=== PATIENT | female | born 1955 | race Caucasian/White ===

== ENCOUNTER 2018-12-01 09:25 | Emergency (ER) | payer MEDICAID ==
[~2018-12-01] VITALS: Ht 170.2 cm; Wt 59.0 kg
--- NOTE | 2018-12-01 09:58 | NUR ---
Resting in [facility]. NAD. No needs.
[2018-12-01] MEDS ORDERED: metroNIDAZOLE 500 MG TABLET PO ONE (10:30)
[2018-12-01 10:44] LABS: BASOPHILS # (AUTO) 0.01 x10^3/uL (0-0.1); BASOPHILS % (AUTO) 0 % (0-1); EOSINOPHILS # (AUTO) 0.17 x10^3/uL (0-0.4); EOSINOPHILS % (AUTO) 4 % (1-7); LYMPHOCYTES # (AUTO) 0.88 x10^3/uL (1-3.4); LYMPHOCYTES % (AUTO) 20 % (22-44); MD NO; MEAN CORPUSCULAR HEMOGLOBIN 27.3 pg (27.0-34.8); MEAN CORPUSCULAR HGB CONC 32.7 g/dL (32.4-35.8); MEAN CORPUSCULAR VOLUME 83.7 fL (80-100); MEAN PLATELET VOLUME 8.6 fL (7.4-10.4); MONOCYTES # (AUTO) 0.56 x10^3/uL (0.2-0.8); MONOCYTES % (AUTO) 13 % (2-9); NEUTROPHILS % (AUTO) 62 % (42-75); PLATELET COUNT 194 x10^3/uL (130-400); RED BLOOD COUNT 4.88 x10^6/uL (3.82-5.3); RED CELL DISTRIBUTION WIDTH 14.5 % (9.6-15.2)
[2018-12-01 10:47] LABS: ALANINE AMINOTRANSFERASE 22 U/L (12-78); ALBUMIN 3.5 g/dL (3.4-5.0); CALCIUM 8.5 mg/dL (8.5-10.1); CHLORIDE 110 mmol/L (98-107); CREATININE 0.69 mg/dL (0.55-1.02)
[2018-12-01 10:49] LABS: ALKALINE PHOSPHATASE 123 U/L (45-117); BILIRUBIN,TOTAL 0.2 mg/dL (0.2-1.0); TOTAL PROTEIN 7.5 g/dL (6.4-8.2)
[2018-12-01 10:57] LABS: ANION GAP 3 mmol/L (5-15)
[2018-12-01] MEDS ORDERED: metroNIDAZOLE 500 MG TABLET ONE (11:04)
--- NOTE | 2018-12-01 11:08 | NUR ---
[facility] admin. No needs.
[2018-12-01 12:25] VITALS: BP 125/78
--- NOTE | 2018-12-01 12:41 | NUR ---
Patient/Caregiver given discharge instructions and they have confirmed that they understand the instructions. Patient ambulatory with steady gait.
== END 2018-12-01 12:41 | disposition home or self-care (01) ==
LOC: ED 12:29
DX: R19.7 Diarrhea, unspecified (principal); I10 Essential (primary) hypertension
CPT/HCPCS: 36415; 80053; 85025; 99283

== ENCOUNTER 2019-02-02 21:56 | Emergency (ER) | payer MEDICAID ==
[~2019-02-02] VITALS: Ht 170.2 cm; Wt 62.7 kg
[2019-02-02 22:02] VITALS: BP 101/73
[2019-02-02] MEDS ORDERED: SULFAMETH./TRIMETHOPRIM DS 800MG/160MG TABLET ONE (22:42)
[2019-02-02] MEDS ORDERED: CEPHALEXIN 500 MG CAPSULE ONE (22:42)
--- NOTE | 2019-02-02 22:56 | NUR ---
PT MEDICATED PER EMAR. PT RESTING IN ROOM DC RN: Patient/Caregiver given discharge instructions and they have confirmed that they understand the instructions. Patient ambulatory with steady gait.
[2019-02-02] MEDS ORDERED: SULFAMETH./TRIMETHOPRIM DS 800MG/160MG TABLET PO ONE (23:00)
[2019-02-02] MEDS ORDERED: CEPHALEXIN 500 MG CAPSULE PO ONE (23:00)
--- NOTE | 2019-02-03 00:19 | NUR ---
Patient/Caregiver given discharge instructions and they have confirmed that they understand the instructions. Patient ambulatory with steady gait.
== END 2019-02-03 00:20 | disposition home or self-care (01) ==
LOC: ED 22:40
DX: A49.02 Methicillin resistant Staphylococcus aureus infection, unspecified site (principal); B86 Scabies; I10 Essential (primary) hypertension
CPT/HCPCS: 99283

== ENCOUNTER 2019-02-20 19:28 | Emergency (ER) | payer MEDICAID ==
[~2019-02-20] VITALS: Ht 170.2 cm; Wt 58.0 kg
--- NOTE | 2019-02-20 19:35 | NUR ---
pt amb to br and back to room with steady gait.
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
--- NOTE | 2019-02-20 19:56 | NUR ---
XRAY IN ROOM.
[2019-02-20] MEDS ORDERED: DIPHENHYDRAMINE 25 MG CAPSULE ONE (19:58)
[2019-02-20] MEDS ORDERED: DIPHENHYDRAMINE 25 MG CAPSULE PO ONE (20:00)
[2019-02-20] MEDS ORDERED: PERMETHRIN CRM 5%, 60GM TP SCH (20:00)
[2019-02-20] MEDS ORDERED: PERMETHRIN CRM 5%, 60GM ONE (20:03)
--- NOTE | 2019-02-20 20:08 | NUR ---
PT MEDICATED PER EMAR. PT TOLERATED WELL. PT'S AOX4. RESPS EVEN AND UNLABORED.
[2019-02-20] MEDS ORDERED: PERMETHRIN CRM 5%, 60GM TP ONE (20:30)
[2019-02-20] MEDS ORDERED: LORazepam 1MG TABLET ONE (20:44)
--- NOTE | 2019-02-20 20:47 | NUR ---
pt medicated per emar. pt tolerated well. pt's aox4. resps even and unlabored.
[2019-02-20] MEDS ORDERED: LORazepam 1MG TABLET PO ONE (21:00)
[2019-02-20 21:09] VITALS: BP 125/77
--- NOTE | 2019-02-20 21:10 | NUR ---
PT RESTING IN [facility]. PT'S AOX4. RESPS EVEN AND UNLABORED. BP/SPO2 MONITORS IN PLACE. CALL LIGHT WITHIN REACH. AWAITING DC NOW.
--- NOTE | 2019-02-20 21:30 | NUR ---
PT GIVEN DC INSTRUCTIONS AND SCRIPTS. PT EDUCATED REGARDING DC MEDICATIONS. PT'S AOX4. RESPS EVEN AND UNLABORED. PT GIVEN TAXI VOUCHER AT DC. NO ACUTE DISTRESS AT DC.
== END 2019-02-20 21:31 | disposition home or self-care (01) ==
LOC: ED 20:16
DX: R05 Cough (principal); B86 Scabies; Z86.14 Personal history of Methicillin resistant Staphylococcus aureus infection
CPT/HCPCS: 71045; 99283; Q0163